=== PATIENT | female | born 1995 | race Caucasian/White ===

== ENCOUNTER 2016-09-18 10:33 | Emergency (ER) | payer BC, SELFPAY ==
[~2016-09-18] VITALS: Ht 162.6 cm; Wt 55.0 kg
[2016-09-18 10:36] VITALS: BP 114/80
[2016-09-18] MEDS ORDERED: KETOROLAC 30 MG/1 ML IM ONE (11:30)
[2016-09-18 11:38] LABS: ASPARTATE AMINO TRANSFERASE 13 U/L (15-37); BLOOD UREA NITROGEN 17 mg/dL (7-18)
[2016-09-18] MEDS ORDERED: KETOROLAC 30 MG/1 ML ONE (11:41)
[2016-09-18 12:08] LABS: HCG UR OBC PASS
== END 2016-09-18 13:16 | disposition home or self-care (01) ==
LOC: ED 12:18
DX: R10.84 Generalized abdominal pain (principal); R11.2 Nausea with vomiting, unspecified; N92.0 Excessive and frequent menstruation with regular cycle
CPT/HCPCS: 36415; 74000; 76830; 80053; 81003; 81025; 85025; 96372; 99285; J1885

== ENCOUNTER 2016-12-05 09:56 | Emergency (ER) | payer BC ==
[~2016-12-05] VITALS: Ht 162.6 cm; Wt 53.8 kg
[2016-12-05] MEDS ORDERED: SODIUM CHLORIDE 0.9% 1,000 ML IV ONE (10:15)
[2016-12-05] MEDS ORDERED: KETOROLAC 30 MG/1 ML ONE (10:27)
[2016-12-05] MEDS ORDERED: DIPHENHYDRAMINE 50 MG/ML, 1ML ONE (10:28)
[2016-12-05] MEDS ORDERED: PROCHLORPERAZINE 5 MG/ML, 2ML ONE (10:28)
[2016-12-05] MEDS ORDERED: SODIUM CHLORIDE 0.9% 1,000ML IVBOLUS ONE (10:30)
[2016-12-05] MEDS ORDERED: KETOROLAC 30 MG/1 ML IVPush ONE (10:30)
[2016-12-05] MEDS ORDERED: DIPHENHYDRAMINE 50 MG/ML, 1ML IVPush ONE (10:30)
[2016-12-05] MEDS ORDERED: SODIUM CHLORIDE FLUSH 10ML SYR IVF ONE (10:30)
[2016-12-05] MEDS ORDERED: PROCHLORPERAZINE 5 MG/ML, 2ML IVPush ONE (10:30)
[2016-12-05 11:43] VITALS: BP 123/74
== END 2016-12-05 11:49 | disposition home or self-care (01) ==
LOC: ED 10:43
DX: J01.10 Acute frontal sinusitis, unspecified (principal); R51 Headache
CPT/HCPCS: 96361; 96374; 96375; 99284; J0780; J1200; J7030